=== PATIENT | female | born 1990 | race Caucasian/White ===

== ENCOUNTER 2020-08-10 19:39 | Emergency (ER) | payer OTHER, SELFPAY ==
[2020-08-10] VITALS (8 sets, daily range): BP systolic 131–152; BP diastolic 72–110; PULSE 67–103; RESP 15–21; TEMP 36.8; O2SAT 99–100
--- NOTE | 2020-08-10 19:48 | ECG_ITS ---
Measurements Intervals [place] Rate: 77 P: 15 MA: 129 QRS: 14 QRSD: 92 T: -10 QT: 361 QTc: 409 Interpretive Statements SINUS RHYTHM NONSPECIFIC T-WAVE ABNORMALITY- ANTEROLAT/INF LEADS BORDERLINE ECG Electronically Signed On 08-10-2020 20:42:30 CDT by Adrian Miller D.O.
--- NOTE | 2020-08-10 19:48 | ED.DIZZY ---
HPI - Dizziness General Chief Complaint: Dizziness Stated Complaint: dizzy, miscarriage Time Seen by Provider: 08/10/20 19:47 Source: patient Mode of arrival: ambulatory Limitations: no limitations History of Present Illness HPI Narrative: Patient is a 29-year-old female 1030 who who presented for evaluation of continued vaginal bleeding, nausea, vomiting and dizziness. Patient reports history of recent twin miscarriage for which she was evaluated at [facility] 5 days ago. Patient evaluated Tuesday after patient reported that she delivered a small baby and the placenta at home and then presented to [facility] where she states that she delivered another baby and placenta. Patient states at that point her beta hCG level was checked and it was 960. Patient states she did not have any ultrasound performed. Patient has been spotting and having intermittent heavy bleeding with clots present since that time. No syncope or loss of consciousness. No fever or chills. No dysuria. Patient states she intermittently feels nauseous and dizzy. She is denying any abdominal pain or back pain. She has been able to tolerate oral intake. Patient is not currently established with an IT APPLICATIONS DEVELOPER. Per chart review, blood type is O+. Patient states that she has miscarried 3 twin pregnancies. She states she has follow-up with Dr. Sotomayor in [place] for . She is not currently established with any IT APPLICATIONS DEVELOPER. Related Data Allergies Allergy/AdvReac Type Severity Reaction Status Date / Time codeine Allergy Unknown Stopped Verified 08/10/20 19:48 Breathing ondansetron [From Zofran] Allergy Migraine Verified 08/10/20 20:14 Review of Systems Review of Systems: Narrative: CONSTITUTIONAL: Denies fever, chills, or sweats. CARDIOVASCULAR: Denies chest pain, palpitations, or edema. RESPIRATORY: Denies cough or dyspnea. GASTROINTESTINAL: No abdominal pain, pelvic pain or nausea GENITOURINARY: Denies dysuria or hematuria. Reporting vaginal bleeding. SKIN: Denies rash or itching. MUSCULOSKELETAL: Denies back pain, joint pain, or myalgia. NEUROLOGIC: Denies headache, numbness, or weakness. Reporting intermittent dizziness PMFSH Past Medical History Medical History (Updated 08/10/20 @ 21:49 by Bre Fry MD) Endometriosis Miscarriage Surgical History Surgical History (Updated 08/10/20 @ 20:24 by Bre Fry MD) H/O exploratory laparotomy Family History Family History (Updated 11/01/17 @ 12:33 by DOCTOR UNKNOWN) Mother Hypertension Family history of malignant neoplasm of cervix Family history of malignant neoplasm of ovary Sibling Hypertension Grandparent Cerebrovascular accident Family history of malignant neoplasm of cervix Social History Social History Smoking status: Never smoker Alcohol intake: current Gender identity (if verbalized by the patient): Female Exam Narrative: Exam Narrative: GENERAL: Awake, alert, conversant HEAD: Normocephalic, atraumatic. EYES: PERRLA and EOMI. ENT: Nares clear, no rhinorrhea or epistaxis. Mucous membranes moist. NECK: Supple. CHEST: No respiratory distress, breathing even and non labored HEART: Regular rate, sinus rhythm ABDOMEN:Non distended, non tender : Labia majora and minora normal without lesions. Vagina with scant blood.Os dilated to 2 cm. No cervical motion tenderness. No adnexal tenderness or fullness bilaterally. No purulent discharge present. EXTREMITIES: Normal range of motion. No edema. SKIN: Warm, dry, no rash. NEURO:No focal deficits. Alert and oriented x3 Course Vital Signs Vital signs: Vital Signs Temperature 36.8 C 08/10/20 19:44 Pulse Rate 87 08/10/20 19:44 Respiratory Rate 20 08/10/20 19:44 Blood Pressure 147/108 H 08/10/20 19:44 Pulse Oximetry 100 08/10/20 19:44 Temperature 36.8 C 08/10/20 19:44 Pulse Rate 71 08/10/20 21:30 R
[2020-08-10 20:12] LABS: Add Urine Microscopic? YES; Appearance Urine Clear (Clear); Bacteria Urine Trace /hpf; Bilirubin Urine Negative (Negative); Blood Urine 3+ (Negative); Color Urine Straw (Yellow); Glucose Urine UA Negative (Negative); Ketones Urine Negative (Negative); Leukocyte Esterase Ur 3+ LEU/UL (Negative); Mucus Urine Rare /lpf; Nitrate Urine Negative (Negative); Protein Urine Negative (Negative); Squamous Epithelial Cell Urine Few /hpf (Few); Urobilinogen Urine Negative mg/dL (<2.0); WBC Urine 31-50 /hpf
[2020-08-10 20:13] LABS: Specific Grav Ur 1.004 (1.001-1.035)
[2020-08-10 20:27] LABS: Basophils Absolute Auto 0.1 K/mm3 (0.0-0.1); Basophils Percent Auto 0.8 % (0.2-1.2); Eosinophils Absolute Auto 0.1 K/mm3 (0-0.3); Eosinophils Percent Auto 1.5 % (0-4.4); Hematocrit 39.1 % (37.0-47.0); Hemoglobin 13.2 g/dL (12.0-15.0); Immature Granulocyte Absolute 0.01 K/mm3 (0.00-0.031); Immature Granulocyte Percent A 0.2 % (0-0.5); Lymphocytes Absolute Auto 2.67 K/mm3 (0.9-3.2); Lymphocytes Percent Auto 40.9 % (18.3-44.2); Mean Corpuscular HGB Conc 33.8 g/dl (32-36); Mean Corpuscular Hemoglobin 29.5 pg (26-34); Mean Corpuscular Volume 87.5 fl (80-100); Mean Platelet Volume 10.5 fl (7.4-10.4); Monocytes Absolute Auto 0.5 K/mm3 (0.1-0.6); Monocytes Percent Auto 7.2 % (2.6-8.5); Neutrophils Absolute Auto 3.2 K/mm3 (1.3-6.7); Neutrophils Percent Auto 49.4 % (45.5-73.1); Platelet Count Result 304 k/mm3 (150-375); Red Blood Count 4.47 M/mm3 (4.2-5.4); Red Cell Distribution Width 12.3 % (11.5-14.5); White Blood Count 6.5 K/mm3 (4.5-10.0)
[2020-08-10] MEDS: MECLIZINE HCL 25 MG TABLET PO (20:28)
[2020-08-10] MEDS: SODIUM CHLORIDE 0.9% IV 1,000 ML 999 ML IV CONT (20:29)
[2020-08-10] MEDS: METOCLOPRAMIDE HCL INJ 10 MG/2 ML VIAL IV PUSH (20:33)
[2020-08-10 20:38] LABS: Alanine Aminotransferase 42 U/L (4-35); Albumin Level 4.4 g/dL (3.5-5.1); Alkaline Phosphatase 68 U/L (38-126); Anion Gap 9 mmol/L (8-16); Aspartate Amino Transferase 30 U/L (14-36); Bilirubin,Total 0.7 mg/dL (0.2-1.3); Blood Urea Nitrogen 10 mg/dL (7-17); Calcium 9.3 mg/dL (8.4-10.2); Carbon Dioxide 28 mmol/L (22-30); Chloride 105 mmol/L (98-107); Estimated CRCL calculation 106 ml/min; Estimated Glomerular Filt Rate > 60; Glucose 99 mg/dL (65-105); Potassium 3.7 mmol/L (3.4-5.0); Sodium 142 mmol/L (137-145)
[2020-08-10 20:39] LABS: INR 1.1; Prothrombin Time 13.6 Seconds (11.1-14.7)
[2020-08-10 20:40] LABS: Partial Thromboplastin Time 32.7 SECONDS (22.3-36.8)
[2020-08-10 20:55] LABS: Beta HCG Quantitative 67.43 mIU/ML
== END 2020-08-10 22:09 | disposition home or self-care (01) ==
PROVIDERS: Emergency Medicine; Emergency Provider Emergency Medicine; PCP Obstetrics & Gynecology
DX: N93.9 Abnormal uterine and vaginal bleeding, unspecified (principal); N80.9 Endometriosis, unspecified; R94.31 Abnormal electrocardiogram [ECG] [EKG]
CPT/HCPCS: 36415; 80053; 81001; 81025; 84702; 85025; 85610; 85730; 87086; 93005; 96361; 96374; 96375; 99284; A9270; J0131; J2765; J7030

== ENCOUNTER 2021-07-25 19:01 | Emergency (ER) | payer OTHER, SELFPAY ==
--- NOTE | 2021-07-25 19:03 | PC.NURSE ---
pt states to this RN she is just going to call my primary in the morning since it's a couple hour wait .
== END 2021-07-25 19:03 | disposition left against medical advice (07) ==
PROVIDERS: PCP Nurse Practitioner Family
DX: Z53.21 Procedure and treatment not carried out due to patient leaving prior to being seen by health care provider (principal)
CPT/HCPCS: 99199

== ENCOUNTER 2021-10-27 16:11 | Emergency (ER) | payer OTHER, SELFPAY ==
[2021-10-27 16:35] VITALS: BP 133/97; PULSE 63; RESP 14; TEMP 36.3; O2SAT 100
--- NOTE | 2021-10-27 19:05 | ED.GENADULT ---
HPI - General Adult General Chief complaint: Extremity Injury, Upper Stated complaint: shoulder pain Time Seen by Provider: 10/27/21 18:39 Source: patient Mode of arrival: ambulatory Limitations: no limitations History of Present Illness HPI narrative: Patient is 31-year-old female presented with chief complaint of injury to her left shoulder that began on October 13 after helping her brother move a couch. Patient reports she has had pain to the area that radiates from the posterior area of her shoulder into her scapula with range of motion. Patient reports that she has been seen [facility] and had an x-ray that was negative for fracture. Patient states that she was prescribed ibuprofen, muscle relaxers and steroids. Patient reports her primary care has instructed her to follow-up with eating disorder specialist but she has not heard back from the specialist at this time. Patient reports that she was told by her primary care that if her symptoms persisted or worsen to return to the emergency department. Patient denies any new injuries. Patient reports the pain at times radiates down her left arm. Patient has any other injuries or concerns. Related Data Allergies Allergy/AdvReac Type Severity Reaction Status Date / Time codeine Allergy Unknown Stopped Verified 10/27/21 18:21 Breathing ondansetron [From Zofran] Allergy Migraine Verified 10/27/21 18:21 Review of Systems Review of Systems: CONSTITUTIONAL: Denies fever, chills, or sweats. EYES: Denies visual changes, redness, or discharge. ENT: Denies rhinorrhea, congestion, sore throat, or otalgia. CARDIOVASCULAR: Denies chest pain, palpitations, or edema. RESPIRATORY: Denies cough or dyspnea. GASTROINTESTINAL: Denies abdominal pain, nausea, vomiting, or diarrhea. GENITOURINARY: Denies dysuria or hematuria. SKIN: Denies rash or itching. MUSCULOSKELETAL: Reports left shoulder pain denies back pain, joint pain, or myalgia. NEUROLOGIC: Denies headache, numbness, dizziness, or weakness. PSYCHIATRIC: Denies anxiety or depression. [facility] Past Medical History Medical History (Updated 10/27/21 @ 19:14 by Valentina Hartman PA-C) Endometriosis Miscarriage Surgical History Surgical History (Updated 08/10/20 @ 20:24 by Bre Fry MD) H/O exploratory laparotomy Family History Family History (Updated 11/01/17 @ 12:33 by DOCTOR UNKNOWN) Mother Hypertension Family history of malignant neoplasm of cervix Family history of malignant neoplasm of ovary Sibling Hypertension Grandparent Cerebrovascular accident Family history of malignant neoplasm of cervix Social History Social History Smoking status: Never smoker Alcohol intake: current Gender identity (if verbalized by the patient): Female Exam Narrative: GENERAL: Well-appearing, well-nourished, and in no acute distress. HEAD: Normocephalic, atraumatic. EYES: PERRLA and EOMI. CHEST: No respiratory distress. No tachypnea HEART: Regular rate and rhythm. EXTREMITIES: Pain with range of motion of the left shoulder. Pain with palpation to the posterior aspect of rotator area and into the scapula. No rash noted. No edema. SKIN: Warm, dry, no rash. NEURO: No focal deficits. Alert and oriented x3. PSYCH: Normal mood and affect. Course Vital Signs Vital signs: Vital Signs Temperature 97.4 F L 10/27/21 16:35 Pulse Rate 63 10/27/21 16:35 Respiratory Rate 14 10/27/21 16:35 Blood Pressure 133/97 H 10/27/21 16:35 Pulse Oximetry 100 10/27/21 16:35 Temperature 97.4 F L 10/27/21 16:35 Pulse Rate 63 10/27/21 16:35 Respiratory Rate 14 10/27/21 16:35 Blood Pressure 133/97 H 10/27/21 16:35 Pulse Oximetry 100 10/27/21 16:35 Medical Decision Making MDM Narrative Medical decision making narrative: Patient is already had x-ray imaging of the shoulder has not had any new traumas. X-ray was negative. Patient has been referred
[2021-10-27 19:27] VITALS: BP 128/84; PULSE 70; RESP 16; O2SAT 99
== END 2021-10-27 19:28 | disposition home or self-care (01) ==
PROVIDERS: Emergency Provider Emergency Medicine; PCP Nurse Practitioner Family
DX: S46.912A Strain of unspecified muscle, fascia and tendon at shoulder and upper arm level, left arm, initial encounter (principal); X50.0XXA Overexertion from strenuous movement or load, initial encounter
CPT/HCPCS: 99282

== ENCOUNTER 2022-06-17 10:22 | Emergency (ER) | payer OTHER, SELFPAY ==
[2022-06-17 10:25] VITALS: BP 120/81; PULSE 83; RESP 18; TEMP 36.8; O2SAT 99
--- NOTE | 2022-06-17 10:26 | ED.URI ---
HPI - URI/Sore Throat General Chief Complaint: Upper Respiratory Infection Stated Complaint: ears and throat Time Seen by Provider: 06/17/22 10:43 Source: patient and RN notes reviewed Mode of arrival: ambulatory Limitations: no limitations History of Present Illness HPI Narrative: 31-year-old female presents with concern for ear pain and sore throat. Reports she has problems with her ears chronically, she has been having left ear pain for probably 1 week the throat started hurting yesterday. She reports she took Mucinex last night with mild relief. She denies fever, cough, drainage from the ear. MD elicited complaint: sore throat and other (Ear pain) Related Data Home Medications Medication Instructions Recorded Confirmed hydroxyzine HCl 25 mg tablet 25 mg PO Q8H PRN Anxiety 06/17/22 06/17/22 metoprolol succinate 50 mg 50 mg PO DAILY 06/17/22 06/17/22 tablet,extended release 24 hr sertraline 50 mg tablet 50 mg PO DAILY 06/17/22 06/17/22 Allergies Allergy/AdvReac Type Severity Reaction Status Date / Time codeine Allergy Unknown Stopped Verified 06/17/22 10:34 Breathing ondansetron [From Zofran] Allergy Migraine Verified 06/17/22 10:34 Review of Systems Review of Systems: CONSTITUTIONAL: Denies malaise, chills, sweats, or fever. EYES: Denies visual changes, redness, or discharge. ENT: Reports rhinorrhea, otalgia and sore throat. CARDIOVASCULAR: Denies chest pain, palpitations, or edema. RESPIRATORY: Denies cough. Denies dyspnea. GASTROINTESTINAL: Denies abdominal pain, nausea, vomiting, diarrhea SKIN: Denies rash or itching. MUSCULOSKELETAL: Denies myalgia. NEUROLOGIC: Denies headache. All systems reviewed & are unremarkable except as noted in HPI and below PMFSH Past Medical History Medical History (Updated 06/17/22 @ 10:45 by Rohini Cabrera NP) Endometriosis Miscarriage Surgical History Surgical History (Updated 08/10/20 @ 20:24 by Bre Fry MD) H/O exploratory laparotomy Family History Family History (Updated 11/01/17 @ 12:33 by DOCTOR UNKNOWN) Mother Hypertension Family history of malignant neoplasm of cervix Family history of malignant neoplasm of ovary Sibling Hypertension Grandparent Cerebrovascular accident Family history of malignant neoplasm of cervix Social History Social History Smoking status: Never smoker Alcohol intake: current Gender identity (if verbalized by the patient): Female Comments At time of signature, agree with nursing past medical, surgical, social and family history. There is no relevant family history pertinent to the presenting complaint Exam Narrative: GENERAL: Well-appearing, well-nourished, and in no acute distress. HEAD: Normocephalic EYES: PERRLA, conjunctivae clear ENT: Nares clear, turbinates erythematous, clear discharge. Mucous membranes moist. TM pearly bar with dull light reflex bilaterally; no tragal tenderness. Oropharynx not erythematous without lesions. Tonsils not enlarged and without exudate, no drooling, no hoarseness, no trismus, uvula midline. NECK: Supple. No lymphadenopathy CHEST: Clear to auscultation, breath sounds equal. No wheezing, rhonchi, rales, or stridor. No respiratory distress, speaks in full sentences. HEART: Regular rate and rhythm. No murmur heard. SKIN: Warm, dry, no rash. NEURO: Alert and oriented x3. PSYCH: Normal mood and affect Course Course Emergency Course: Patient is aware of diagnosis, understands and agrees to treatment plan. Anticipatory guidance given. Patient agrees to follow-up as directed and is aware of reasons to seek care at the emergency department. Portions of this record may have been created with voice recognition software Level of Care: Express Care Visit Vital Signs Vital signs: Reviewed. MDM - URI/Sore Throat MDM Narrative Medical decision making narrative: Differential diagnosis considered: [place] v
== END 2022-06-17 10:55 | disposition home or self-care (01) ==
PROVIDERS: Emergency Provider Nurse Practitioner; PCP Nurse Practitioner Family
DX: H92.02 Otalgia, left ear (principal); N80.9 Endometriosis, unspecified
CPT/HCPCS: 87081; 99213; G0463